=== PATIENT | male | born 2000 | race Caucasian/White ===

== ENCOUNTER 2025-03-25 14:24 | Emergency (ER) | payer OTHER, SELFPAY ==
[2025-03-25 14:35] VITALS: BP 143/90; PULSE 78; RESP 18; TEMP 37; O2SAT 100
--- NOTE | 2025-03-25 14:42 | ED_ITS ---
HPI - Ear Problem General Chief complaint: Ear Stated complaint: Right Ear Pain Time Seen by Provider: 03/25/25 14:42 Source: patient Mode of arrival: ambulatory Limitations: no limitations History of Present Illness HPI Narrative: 25 yo M presents with c/o ringing to R ear, clogged sensation. Was swimming days ago in pool. Ear felt clogged from water. Attempted to clean out with qtip. After using qtip had ringing to ear. No pain or fever. All systems reviewed and negative except as noted above. Related Data Home Medications ?Medication ?Instructions ?Recorded ?Confirmed ?Last Taken ?Type No Home Medications 03/25/25 03/25/25 Unknown History Allergies Allergy/AdvReac Type Severity Reaction Status Date / Time No Known Allergies Allergy Verified 03/25/25 14:47 Review of Systems Review of Systems: CONSTITUTIONAL: Denies fever, chills, or sweats. EYES: Denies visual changes, redness, or discharge. ENT: Denies rhinorrhea, congestion, sore throat . Reports ringing and clogged sensation to right ear. CARDIOVASCULAR: Denies chest pain, palpitations, or edema. RESPIRATORY: Denies cough or dyspnea. GASTROINTESTINAL: Denies abdominal pain, nausea, vomiting, or diarrhea. GENITOURINARY: Denies dysuria or hematuria. SKIN: Denies rash or itching. MUSCULOSKELETAL: Denies back pain, joint pain, or myalgia. NEUROLOGIC: Denies headache, numbness, or weakness. PSYCHIATRIC: Denies anxiety or depression. All other systems reviewed are negative, except as documented in HPI. PMFSH Comments At time of signature, agree with nursing past medical, surgical, social and family history. There is no relevant family history pertinent to the presenting complaint. Exam Narrative: GENERAL: This is a well-nourished, well-developed patient, in no apparent distress. HEAD: normocephalic, atraumatic. EYES: PERRL. Sclera clear/white. Vision is grossly intact. EARS: External ears normal, small arount cerumen to both ear canals, after irrigation TMs normal without perforation. Hearing grossly intact. NOSE: External nose normal NECK: Neck supple, non-tender without lymphadenopathy, masses or thyromegaly. CARDIOVASCULAR: Regular rate and rhythm without murmurs, gallops, or rubs. RESPIRATORY: Clear to auscultation. Breath sounds equal bilaterally. No wheezes, rales, or rhonchi. SKIN: warm, Dry, intact with no suspicious lesions or rash, good texture and turgor. NEURO: awake, alert, and oriented to person, place and time. There were no o bvious focal neurologic abnormalities. EXTREMITIES: No joint tenderness, effusion, or edema noted. Course Course Level of Care: Express Care Visit Vital Signs Vital signs: Vital Signs Temperature 37.0 C 03/25/25 14:35 Pulse Rate 78 03/25/25 14:35 Respiratory Rate 18 03/25/25 14:35 Blood Pressure 143/90 H 03/25/25 14:35 Pulse Oximetry 100 03/25/25 14:35 Oxygen Delivery Room Air 03/25/25 14:35 Temperature 37.0 C 03/25/25 14:35 Pulse Rate 78 03/25/25 14:35 Respiratory Rate 18 03/25/25 14:35 Blood Pressure 143/90 H 03/25/25 14:35 Pulse Oximetry 100 03/25/25 14:35 Oxygen Delivery Room Air 03/25/25 14:35 reviewed Procedures Ear Wax Removal Both Ears: Ear Wax Removal Date: 03/25/25 Ear Wax Removal Time: 14:40 Cerumenolytic Used: other (warm water) Results: Re-examined: cerumen removed completely TM Examination: TM(s) intact, normal appearance Ear Canal Exam: atraumatic Patient Tolerated Procedure: well Complications: no problems Technique: ear canal irrigated and ear canal curetted Medical Decision Making MDM Narrative Medical decision making narrative: ear canals irrigated with warm water. ringing to R ear resolved after irrigation. Vital Signs Vital Signs: Vital Signs Temperature 37.0 C 03/25/25 14:35 Pulse Rate 78 03/25/25 14:35 Respiratory Rate 18 03/25/25 14:35 Blood Pressure 143/90 H 03/25/25 14:35 Pulse Oximetry 100 03/25/25 14:35 Oxygen Delivery Room Air 03/25/25 14:35 Temperature 37.0 C 03/25/25 14:35 Pulse Rate 78 03/25/25 14:35 Respiratory Rate 18 03/25/25 14:35 Blood Pressure 143/90 H 03/25/25 14:35 Pulse Oximetry 100 03/25/25 14:35 Oxygen Delivery Room Air 03/25/25 14:35 Discharge Plan Discharge Clinical Impression: Bilateral impacted cerumen Patient Disposition: Home Condition: Stable Patient Language: [place] Prescriptions: No Action No Home Medications Follow-up/Referrals: UNKNOWN,DOCTOR [Primary Care Provider] - Time of Disposition: 14:52
== END 2025-03-25 14:56 | disposition home or self-care (01) ==
PROVIDERS: Emergency Provider Nurse Practitioner Family
DX: H61.23 Impacted cerumen, bilateral (principal)
CPT/HCPCS: 69210; 99202; G0463